=== PATIENT | male | born 1985 | race Hispanic/Latino ===

== ENCOUNTER 2018-11-14 15:53 | Emergency (ER) | payer OTHER, SELFPAY ==
[2018-11-14] MEDS ORDERED: Lidocaine 1% PF 5 ML VIAL ONE ×2 (16:02)
[2018-11-14] MEDS ORDERED: Adacel (T-DAP) 0.5 ML SYRINGE ONE (16:02)
--- NOTE | 2018-11-14 16:35 | RAD ---
LEFT HAND RADIOGRAPHS THREE VIEWS: 11/14/18 PROVIDED CLINICAL HISTORY: Left hand pain status post injury. FINDINGS: No evidence for fracture or other acute osseous abnormality. If there is persistent clinical concern, conservative management and follow-up imaging are advised. IMPRESSION: As above. POS: [facility]
[2018-11-14] MEDS ORDERED: Bacitracin 1 PK ONE (16:58)
== END 2018-11-14 17:25 | disposition home or self-care (01) ==
LOC: SCSER 15:53
DX: S56.424A Laceration of extensor muscle, fascia and tendon of left middle finger at forearm level, initial encounter (principal); S61.215A Laceration without foreign body of left ring finger without damage to nail, initial encounter; Z23 Encounter for immunization; W29.8XXA Contact with other powered hand tools and household machinery, initial encounter
CPT/HCPCS: 12002; 90471; 90715; J2001

== ENCOUNTER 2021-11-01 13:42 | Outpatient (CLI) | payer SELFPAY | END 2021-11-01 13:43 | disposition home or self-care (01) | LOC: LABBT 13:42 | PROVIDERS: ATTEND Orthopaedic Surgery | DX: Z01.812 Encounter for preprocedural laboratory examination (principal); S83.251A Bucket-handle tear of lateral meniscus, current injury, right knee, initial encounter; Z20.822 Contact with and (suspected) exposure to COVID-19 | CPT/HCPCS: 87811 ==

== ENCOUNTER 2021-11-03 07:11 | Day surgery (SDC) | payer OTHER ==
[2021-11-01 16:10] VITALS: BMI 30.1
[2021-11-03] MEDS ORDERED: PROPOFOL 20 ML ONE (08:40)
[2021-11-03] MEDS ORDERED: fentaNYL Citrate/PF 100 MCG/2 ML SYRINGE ONE (09:45)
[2021-11-03] MEDS ORDERED: Sodium Chloride 0.9% 100 ML ONE (09:51)
[2021-11-03] MEDS ORDERED: CEFAZOLIN 2 GM VIAL ONE (09:51)
[2021-11-03] MEDS ORDERED: Bupivacaine HCl 0.5%/Epinephrine 1:200,000/PF 30 ml Vial ONE (10:03)
[2021-11-03] MEDS ORDERED: Ketorolac Tromethamine 30 MG/ML VIAL ONE (10:03)
[2021-11-03] MEDS ORDERED: Dexamethasone 20 MG/5 ML VIAL ONE (10:03)
[2021-11-03] MEDS ORDERED: Lidocaine 2% w/Epinephrine 1:200K 20 ML VIAL ONE (10:03)
[2021-11-03] MEDS ORDERED: Lidocaine 1% PF 5 ML VIAL ONE (10:03)
[2021-11-03] MEDS ORDERED: Ondansetron PF 4 MG/2 ML Vial ONE (10:03)
[2021-11-03] MEDS ORDERED: PROPOFOL 200 MG/20 ML VIAL ONE (10:03)
== END 2021-11-03 14:25 | disposition home or self-care (01) ==
LOC: SDC 07:11
PROVIDERS: ATTEND Orthopaedic Surgery
PROC: 0SBC4ZZ Excision of Right Knee Joint, Percutaneous Endoscopic Approach (ICD-10-PCS; principal; 2021-11-03)
DX: S83.251A Bucket-handle tear of lateral meniscus, current injury, right knee, initial encounter (principal); E78.00 Pure hypercholesterolemia, unspecified; Z79.899 Other long term (current) drug therapy; X50.1XXA Overexertion from prolonged static or awkward postures, initial encounter
CPT/HCPCS: J0690; J1100; J1885; J2405; J2704; J3490